=== PATIENT | female | born 1995 | race Hispanic/Latino ===

== ENCOUNTER 2023-11-28 11:46 | Emergency (ER) | payer OTHER, SELFPAY ==
[2023-11-28 12:00] VITALS: BP 127/69; PULSE 74; RESP 16; TEMP 36.2; O2SAT 98
--- NOTE | 2023-11-28 12:28 | ED.GENADULT ---
HPI - General Adult General Chief complaint: Dizziness Stated complaint: Dizziness, vomiting Time Seen by Provider: 11/28/23 12:10 Source: patient, family and other (patient declined daytime babysitter.) Mode of arrival: ambulatory Limitations: no limitations History of Present Illness HPI narrative: Patient presents today complaining of a 9 day history of intermittent dizziness, nausea, vomiting. It initially started 9 days ago then resolved after a nap. Started again on the and resolved again that day. Started again on the and lasted 2 days. Started again yesterday and has persisted. States she has vomited at least 6 times today due to her dizziness. Symptoms are worse with head movement side to side and sitting. Symptoms improved with resting and lying flat. Denies any recent upper respiratory symptoms. No chest pain, palpitations, ear pain or recent fever. She has tried no [id number] treatment prior to arrival. Related Data Allergies Allergy/AdvReac Type Severity Reaction Status Date / Time No Known Allergies Allergy Verified 11/28/23 12:02 Review of Systems Review of Systems: CONSTITUTIONAL: Denies body aches, fever, chills, or sweats. EYES: Denies visual changes, redness, or discharge. ENT: Denies rhinorrhea, congestion, sore throat, or otalgia. CARDIOVASCULAR: Denies chest pain, palpitations, or edema. RESPIRATORY: Denies cough or dyspnea. GASTROINTESTINAL: Denies abdominal pain, or diarrhea.+ nausea, vomiting GENITOURINARY: Denies dysuria or hematuria. SKIN: Denies rash, itching, or wounds. MUSCULOSKELETAL: Denies back pain, joint pain, or myalgia. NEUROLOGIC: Denies numbness, tingling, or weakness.+ intermittent headache, dizziness PSYCH: Denies depression or anxiety. PMFSH Comments At time of signature, I have reviewed and agree with nursing past medical, surgical, social and family history unless otherwise noted. Please see nursing chart for further information. There is no relevant family history pertinent to the presenting complaint Exam Narrative: GENERAL: Well-appearing, well-nourished, and in no acute distress. HEAD: Normocephalic, atraumatic. EYES: EOMI. PERRL. No nystagmus. No redness or drainage. Conjunctivae normal. ENT: Mucous membranes pink and moist. Nares clear. No rhinorrhea. TMs normal bilaterally. Throat normal. Uvula midline. NECK: Normal AROM. Supple. No lymphadenopathy. CHEST: No respiratory distress. Clear to auscultation. HEART: Regular rate and rhythm. No murmur appreciated. Normal peripheral pulses. ABDOMEN: Soft, nontender, nondistended, normal active bowel sounds. EXTREMITIES: Normal range of motion. No edema. SKIN: Warm, dry, no rash. Capillary refill normal. Normal skin turgor. NEURO: No focal deficits. Alert and oriented x3. Gait steady. PSYCH: Normal affect. No signs of depression or anxiety. Course Course Level of Care: Express Care Visit Vital Signs Vital signs: Vital Signs Temperature 97.2 F L 11/28/23 12:00 Pulse Rate 74 11/28/23 12:00 Respiratory Rate 16 11/28/23 12:00 Blood Pressure 127/69 11/28/23 12:00 Pulse Oximetry 98 11/28/23 12:00 Oxygen Delivery Room Air 11/28/23 12:00 Temperature 97.2 F L 11/28/23 12:00 Pulse Rate 74 11/28/23 12:00 Respiratory Rate 16 11/28/23 12:00 Blood Pressure 127/69 11/28/23 12:00 Pulse Oximetry 98 11/28/23 12:00 Oxygen Delivery Room Air 11/28/23 12:00 Reviewed Medical Decision Making MDM Narrative Medical decision making narrative: 1311- Headache and dizziness has improved with Meclizine. Will send prescription. Discussed PCP follow up if symptoms do not improve. Discussed ER follow-up if symptoms worsen. Differential Diagnosis Differential Diagnosis: Vertigo, BPH, Meniere's disease, viral syndrome, otitis media Vital Signs Vital Signs: Vital Signs Temperature 97.2 F L 11/28/23 12:00 Pulse Rate 74 11/28/23 12:00 Respiratory Rate 16
[2023-11-28] MEDS: MECLIZINE HCL 25 MG TABLET 50 MG PO (12:29)
--- NOTE | 2023-11-28 13:05 | PC.NURSE ---
Pt states she feels a little bit better and headache is now 4/10. Pt stood up and walked around room with no diffculty.
== END 2023-11-28 13:20 | disposition home or self-care (01) ==
PROVIDERS: Emergency Provider Nurse Practitioner; PCP Family Medicine
DX: R42 Dizziness and giddiness (principal)
CPT/HCPCS: 99213; A9270; G0463